=== PATIENT | male | born 1995 ===

== ENCOUNTER 2017-05-28 02:38 | Emergency (ER) | payer SELFPAY ==
[2017-05-28 03:24] LABS: ALT (SGPT) 17 U/L (8-55); AST (SGOT) 29 U/L (5-34); Alcohol 261 mg/dL (Less than 10); Alkaline Phosphatase 88 U/L (Less than 750); Anion Gap 16 mmol/L (10-20); BUN (Urea Nitrogen) 11 mg/dL (8.9-20.6); Bilirubin, Total 0.5 mg/dL (0.2-1.2); CK (CPK) 718 U/L (30-200); Calc. Creatinine Clearance 0 mL/min (70-130); Calcium 9.5 mg/dL (7.8-10.44); Carbon Dioxide 22 mmol/L (22-29); Chloride 108 mmol/L (98-107); Estimated GFR-MDRD Greater than 90; Globulin 3.3 g/dL (2.4-3.5); Glucose 112 mg/dL (70-105); Protein, Total 8.3 g/dL (6.0-8.3); Sodium 142 mmol/L (136-145)
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
== END 2017-05-28 04:22 | disposition home or self-care (01) ==
LOC: ERS 02:38
DX: S00.33XA Contusion of nose, initial encounter (principal); F10.129 Alcohol abuse with intoxication, unspecified; W50.0XXA Accidental hit or strike by another person, initial encounter
CPT/HCPCS: 36415; 70450; 70486; 80053; 80307; 82550; 96360